=== PATIENT | female | born 1945 | race Caucasian/White ===

== ENCOUNTER 2016-09-01 06:36 | Day surgery (SDC) | payer MEDICARE ==
--- NOTE | ~2016-09-01 | EGD ---
EGD REPORT [facility] [address] [id number] NAME: ANGELO NI : [birth year] STATUS : REG [facility] [place] PAT#: [id number] AGE: 70 ADM/REG DATE : 09/01/16 MR#: [id number] REPORT SERV DATE: 09/01/16 DICTATED BY: JENNY LAROSE III DATE: 09/01/16 REPORT STATUS : Draft TRANSCRIBED BY: [facility] DATE: 09/01/16 [facility] Patient Name: Angelo Ni Date of : 1945 Attending MD: JENNY LAROSE III, MD Procedure Date No Time: 09/01/2016 Procedure: Colonoscopy Indications: Screening for colorectal malignant neoplasm Referring MD: LIZA MARTINS Medicines: Propofol per Anesthesia Complications: No immediate complications. Procedure: Pre-Anesthesia Assessment: - ASA Grade Assessment: II - A patient with mild systemic disease. After I obtained informed consent, the scope was passed under direct vision. Throughout the procedure, the patient's blood pressure, pulse, and oxygen saturations were monitored continuously. The PCF [id number] was introduced through the anus and advanced to the terminal ileum. The colonoscopy was performed with ease. The patient tolerated the procedure well. The quality of the bowel preparation was good. Findings: Small-mouthed diverticula were found in the sigmoid colon. Internal hemorrhoids were found during retroflexion. Three sessile polyps were found in the ascending colon. The polyps were 6 to 7 mm in size. These polyps were removed with a cold snare. Resection and retrieval were complete. Four sessile polyps were found in the transverse colon. The polyps were 4 to 8 mm in size. These polyps were removed with a cold snare. Resection and retrieval were complete. These polyps were removed with a cold biopsy forceps. Resection and retrieval were complete. Two sessile polyps were found in the sigmoid colon. The polyps were 6 to 7 mm in size. These polyps were removed with a hot snare. Resection and retrieval were complete. These polyps were removed with a cold snare. Resection and retrieval were complete. A sessile polyp was found in the rectum. The polyp was 12 mm in size. The polyp was removed with a hot snare and cold biopsy. Resection and retrieval were complete. The terminal ileum appeared normal. Impression: - Diverticulosis in the sigmoid colon. - Internal hemorrhoids. - Three 6 to 7 mm polyps in the ascending colon. EGD REPORT [address] [address] NAME: ANGELO NI : [birth year] STATUS : REG [facility] [place] PAT#: [id number] AGE: 70 ADM/REG DATE : 09/01/16 MR#: [id number] REPORT SERV DATE: 09/01/16 DICTATED BY: JENNY LAROSE III DATE: 09/01/16 REPORT STATUS : Draft TRANSCRIBED BY: [email or web address] DATE: 09/01/16 Resected and retrieved. - Four 4 to 8 mm polyps in the transverse colon. Resected and retrieved. - Two 6 to 7 mm polyps in the sigmoid colon. Resected and retrieved. - One 12 mm polyp in the rectum. Resected and retrieved. Recommendation: - Patient has a contact number available for emergencies. The signs and symptoms of potential delayed complications were discussed with the patient. Return to normal activities tomorrow. Written discharge instructions were provided to the patient. - Discharge patient to home. - High fiber diet indefinitely. - Continue present medications. - Await pathology results. Procedure Code(s): --- Professional --- 72544, Colonoscopy, flexible, proximal to splenic flexure; with removal of tumor(s), polyp(s), or other lesion(s) by snare technique Diagnosis Code(s): --- Professional --- K64.8, Other hemorrhoids K57.30, Diverticulosis of large intestine without perforation or abscess without bleeding K62.1, Rectal polyp D12.5, Benign neoplasm of sigmoid colon D12.3, Benign neoplasm of transverse colon D12.2, Benign neoplasm of ascending colon Z12.11, Encounter for screening for malignant neoplasm of colon CPT copyright 2013 [employer]. All rights reserved. The codes documented in this report are preliminary and upon rn neonatal review may be revised to meet current compliance requirements. JENNY LAROSE III, MD 09/01/2016 9:19 AM This report has been signed electronically. Number of Addenda: 0 Note Initiated On: 09/01/2016 8:04 AM Scope Withdrawal Time 0 hours 30 minutes 29 seconds EGD REPORT [facility] [address] [place] [address] NAME: ANGELO NI : [birth year] STATUS : REG [facility] [place] PAT#: [id number] AGE: 70 ADM/REG DATE : 09/01/16 MR#: [id number] REPORT SERV DATE: 09/01/16 DICTATED BY: JENNY LAROSE III DATE: 09/01/16 REPORT STATUS : Draft TRANSCRIBED BY: [employer] [facility] DATE: 09/01/16 [address] [place] [address]
[~2016-09-01 06:36] MED LIST: ACTONEL150 MG PO; ASAB PO; CRESTOR10 PO; HYDROCHLOROT25 MG PO; MIRALAX POWDER1 PKT PO; PRIN10 PO; PROMEGA PO; ZEGERID1 CA1 PO; [UNRECOGNIZED DRUG - OTHER] PO
== END 2016-09-01 23:59 | disposition home health service (06) ==
LOC: DMU 06:36
PROVIDERS: Internal Medicine Gastroenterology
PROC: 0DBL8ZX Excision of Transverse Colon, Via Natural or Artificial Opening Endoscopic, Diagnostic (ICD-10-PCS; 2016-09-01)
PROC: 0DBN8ZZ Excision of Sigmoid Colon, Via Natural or Artificial Opening Endoscopic (ICD-10-PCS; 2016-09-01)
PROC: 0DBP8ZZ Excision of Rectum, Via Natural or Artificial Opening Endoscopic (ICD-10-PCS; 2016-09-01)
PROC: 0DBP8ZX Excision of Rectum, Via Natural or Artificial Opening Endoscopic, Diagnostic (ICD-10-PCS; 2016-09-01)
PROC: 0DBK8ZZ Excision of Ascending Colon, Via Natural or Artificial Opening Endoscopic (ICD-10-PCS; principal; 2016-09-01 08:30)
PROC: 0DBL8ZZ Excision of Transverse Colon, Via Natural or Artificial Opening Endoscopic (ICD-10-PCS; 2016-09-01 08:30)
DX: Z12.11 Encounter for screening for malignant neoplasm of colon (principal); D12.8 Benign neoplasm of rectum; D12.2 Benign neoplasm of ascending colon; D12.5 Benign neoplasm of sigmoid colon; D12.3 Benign neoplasm of transverse colon; K57.30 Diverticulosis of large intestine without perforation or abscess without bleeding; K64.8 Other hemorrhoids; E78.00 Pure hypercholesterolemia, unspecified; I10 Essential (primary) hypertension; Z88.5 Allergy status to narcotic agent; Z90.49 Acquired absence of other specified parts of digestive tract; Z87.442 Personal history of urinary calculi
CPT/HCPCS: 88305